=== PATIENT | male | born 1960 | race African-American/Black ===

== ENCOUNTER 2017-04-24 19:02 | Emergency (ER) | END 2017-04-25 22:00 | disposition short-term general hospital (02) ==

== ENCOUNTER 2018-07-13 15:25 | Emergency (ER) | payer OTHER ==
[~2018-07-13] VITALS: Ht 175.3 cm; Wt 77.0 kg
[~2018-07-13 15:25] MED LIST: IBUP-1541 PO
[2018-07-13 16:03] VITALS: Ht 175.3 cm; Wt 77.0 kg
[2018-07-13] MEDS ORDERED: KETOROLAC 60 MG INJ IM STA (17:42)
[2018-07-13] MEDS ORDERED: ACETAMINOPHEN 500 MG TAB PO STA (17:42)
[2018-07-13] MEDS ORDERED: ATOR40TA68 PO (18:33)
[2018-07-13] MEDS ORDERED: ASPI-817 PO (18:33)
[2018-07-13] MEDS ORDERED: FAMO20TA18 PO (18:34)
[2018-07-13] MEDS ORDERED: TRA50 PO (18:34)
[2018-07-13] MEDS ORDERED: IBUP800T48 PO (19:16)
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
[2018-07-13 22:20] VITALS: BP 142/88; PULSE 88; RESP 14
== END 2018-07-13 22:37 | disposition home or self-care (01) ==
LOC: FTE 15:25 → E/R 22:37
DX: S93.401A Sprain of unspecified ligament of right ankle, initial encounter (principal); F17.210 Nicotine dependence, cigarettes, uncomplicated; V18.4XXA Pedal cycle driver injured in noncollision transport accident in traffic accident, initial encounter; Y92.009 Unspecified place in unspecified non-institutional (private) residence as the place of occurrence of the external cause
CPT/HCPCS: 73610; 96372; J1885; Z7502; Z7610